=== PATIENT | male | born 1990 | race Caucasian/White ===

== ENCOUNTER 2017-09-01 18:58 | Emergency (ER) | payer OTHER ==
[~2017-09-01] VITALS: Ht 172.7 cm; Wt 75.3 kg
[2017-09-01 19:31] VITALS: BP 143/68
[2017-09-01] MEDS ORDERED: LIDOCAINE WITH 8.4% SOD BICARB 3 ML DISP.SYRIN. IJ ONE ×2 (20:54→21:00)
--- NOTE | 2017-09-01 21:23 | PHYS DOC ---
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 He has a proximally 6 cm laceration to the palmar side of the finger. Has good sensation noted. Patient is unsure when his last tetanus immunization occurred. Bleeding is currently controlled. Patient is right hand dominant. Review of Systems Review of Systems Constitutional: Denies fever or chills [] Eyes: Denies change in visual acuity, redness, or eye pain [] HENT: Denies nasal congestion or sore throat [] Respiratory: Denies cough or shortness of breath [] Cardiovascular: No additional information not addressed in HPI [] GI: Denies abdominal pain, nausea, vomiting, bloody stools or diarrhea [] : Denies dysuria or hematuria [] Musculoskeletal: Denies back pain or joint pain [] Integument: Denies rash or skin lesions. Laceration noted to the right middle finger Neurologic: Denies headache, focal weakness or sensory changes [] Endocrine: Denies polyuria or polydipsia [] All other systems were reviewed and found to be within normal limits, except as documented in this note. Current Medications Current Medications Current Medications Medications (Trade) Dose Ordered Sig/[facility] Start Time Stop Time Status Last Admin Dose Admin Lidocaine/Sodium Bicarbonate (Buffered Lidocaine 1%) 3 ml STK-MED ONCE 09/01/17 20:54 09/01/17 20:55 DC Allergies Allergies Allergies Coded Allergies Type Severity Reaction Last Updated Verified No Known Drug Allergies 09/01/17 No Physical Exam Physical Exam Constitutional: Well developed, well nourished, no acute distress, non-toxic appearance. [] HENT: Normocephalic, atraumatic, bilateral external ears normal, oropharynx moist, no oral exudates, nose normal. [] Eyes: PERRLA, EOMI, conjunctiva normal, no discharge. [] Neck: Normal range of motion, no tenderness, supple, no stridor. [] Cardiovascular:Heart rate regular rhythm Lungs & Thorax: no respiratory distress noted Abdomen: Bowel sounds normal, soft, no tenderness, no masses, no pulsatile masses. [] Skin: Warm, dry, no erythema, no rash. Laceration to right middle finger 6 cm in length. Extremities: No tenderness, no cyanosis, no clubbing, ROM intact, no edema. [] Neurologic: Alert and oriented X 3, normal motor function, normal sensory function, no focal deficits noted. [] Psychologic: Affect normal, judgement normal, mood normal. [] Current Patient Data Vital Signs Vital Signs Date Time Temp Pulse Resp B/P (MAP) Pulse Ox O2 Delivery O2 Flow Rate FiO2 09/01/17 19:31 98.3 78 18 99 Room Air 98.3 EKG EKG [] Radiology/Procedures Radiology/Procedures [] Course & Med Decision Making Course & Med Decision Making Pertinent Labs and Imaging studies reviewed. (See chart for details) Patient was instructed to keep the area clean and dry. Clean the site twice a with soap and water and apply antibiotic ointment to the area. Patient was provided with signs and symptoms of infection: Redness, warmth, tenderness or any yellow/greenish drainage and may come from the site. Patient was instructed to use Tylenol or ibuprofen for pain and discomfort. Ice packs on 20 minutes off 20 minutes several times a day. Elevation as much as possible. Patient was instructed to have the sutures out in the next 7-10 days. He was recommended to avoid submerging the finger and water recommended to avoid using prolonged period of gloves to prevent moisture in the suture area. Patient will be discharged home in stable condition. Signs and symptoms return back to emergency department has been provided. [] Dragon Disclaimer Dragon Disclaimer This electronic medical record was generated, in whole or in part, using a voice recognition dictation system. Departure Departure Impression: Primary Impression: Laceration Disposition: 01 HOME, SELF-CARE Condition: STABLE Referrals: NO PCP (PCP) Patient Instructions: Laceration Care, Adult, [id number] Additional Instructions: Activity as tolerated. Tylenol or ibuprofen for pain and discomfort. Ice packs on 20 minutes off 20 minutes several times a day. Elevation as much as possible. Keep the area clean and dry. Clean the site twice a day with soap and water and apply antibiotic ointment to the area. Watch for signs and symptoms of infection: Redness, warmth, tenderness or any yellow/greenish regime accompanist site if this occurs you will need to follow up immediately. Sutures out the next 7-10 days. Return back to emergency #symptoms become worse. Follow-up for suture removal with your work comp physician. Laceration/Wound Repair Laceration/Wound Repair : Wound Location: upper extremity Wound's Depth, Shape: superficial Wound Length (cm): 6 Wound Explored: clean Irrigated w/ Saline (ccs): 80 Betadine Prep?: Yes Anesthesia: 1% Lidocaine Volume Anesthetic (ccs): 5 Wound Debrided: minimal Wound Repaired With: sutures Suture Size/Type: 4:0, nylon Number of Sutures: 8 Progress One percent lidocaine buffered was injected into the finger for digital block. Site was cleaned with normal saline 80 mL. Site was cleaned with Betadine and sterile drapes applied. 4-0 nylon was used to suture the area with 8 interrupted sutures placed. Patient tolerated the procedure well. EYAD IBRAHIM APRN Sep 01, 2017 21:23
[2017-09-01] MEDS ORDERED: CEPH500T PO (21:33)
[2017-09-01] MEDS ORDERED: DIPHTH,PERTUSS(ACELL),TET TOX 0.5 ML DISP.SYRIN. VAX IM ONE (22:00)
== END 2017-09-01 21:45 | disposition home or self-care (01) ==
LOC: ER 18:58
DX: S61.212A Laceration without foreign body of right middle finger without damage to nail, initial encounter (principal); Y28.8XXA Contact with other sharp object, undetermined intent, initial encounter; Y93.89 Activity, other specified; Y99.8 Other external cause status; Y92.89 Other specified places as the place of occurrence of the external cause
CPT/HCPCS: 12002; 99283-25

== ENCOUNTER 2018-10-07 00:09 | Emergency (ER) | payer SELFPAY ==
[~2018-10-07] VITALS: Ht 177.8 cm; Wt 75.3 kg
[~2018-10-07 00:09] MED LIST: CEPH500T PO
[2018-10-07 00:24] VITALS: BP 147/74
[2018-10-07] MEDS ORDERED: AMOXICILLIN/K CLAV 875/125MG TABLET. PO ONE (00:30)
[2018-10-07] MEDS ORDERED: NEOMY/BACITR/POLYMYXIN OINT PACKET. TP ONE (00:30)
[2018-10-07] MEDS ORDERED: MUPI15CR TP (00:44)
[2018-10-07] MEDS ORDERED: AMOX1TAB61 PO (00:44)
[2018-10-07] MEDS ORDERED: IBUPROFEN 600 MG TABLET. PO ONE (00:45)
--- NOTE | 2018-10-07 00:45 | PHYS DOC ---
Past Medical History Past Medical History: No Pertinent History Past Surgical History: No Surgical History Alcohol Use: Occasionally Drug Use: None Adult General Chief Complaint Chief Complaint: ANIMAL BITE HPI HPI Patient is 28 yo right handed male who presents following dog bite at 2200 this evening. He reports he owns both dogs and they began fighting this evening, which he thinks was d/t one dog being in heat. He reports both dogs are up to date on rabies vaccinations. He was breaking up the dog fight when one dog accidentally bit him to left thumb. He describes the pain as heavy pressure on his thumb. He denies having any other injuries. He did not take any medication for pain or clean the wound following the bite. He denies any numbness in his left hand. He denies feeling any limitation in range of motion. Reports last tetanus booster was last year. Reports he is right hand dominant. Review of Systems Review of Systems Constitutional: Denies fever or chills [] HENT: Admits chronic ptosis L eye. GI: Denies abdominal pain, nausea, vomiting, or diarrhea [] Musculoskeletal: Denies back pain or joint pain. Admits left thumb throbbing pain. Integument: Denies rash or skin lesions. Admits bite wound to L thumb Neurologic: Denies headache, focal weakness or sensory changes [] Complete systems were reviewed and found to be within normal limits, except as documented in this note. Current Medications Current Medications Current Medications Medications (Trade) Dose Ordered Sig/[facility] Start Time Stop Time Status Last Admin Dose Admin Amoxicillin/ Clavulanate Potassium (Augmentin 875/ 125mg) 1 tab 1X ONCE 10/07/18 00:30 10/07/18 00:31 DC 10/07/18 00:44 1 TAB Ibuprofen (Motrin) 600 mg 1X ONCE 10/07/18 00:45 10/07/18 00:46 DC 10/07/18 00:44 600 MG Neomycin/ Polymyxin/ Bacitracin (Triple Antibiotic Ointment) 1 pkt 1X ONCE 10/07/18 00:30 10/07/18 00:31 DC 10/07/18 00:44 1 PKT Allergies Allergies Allergies Coded Allergies Type Severity Reaction Last Updated Verified No Known Drug Allergies 09/01/17 No Physical Exam Physical Exam Constitutional: Well developed, well nourished, no acute distress, non-toxic appearance. [] HENT: Normocephalic, atraumatic, ptosis L eye Eyes: PERRL, EOMI, conjunctiva normal, no discharge. [] Neck: Normal range of motion, Cardiovascular:Heart rate regular rhythm, no murmur [] Lungs & Thorax: Bilateral breath sounds clear to auscultation [] Extremities: L thumb tender to palpation with 3 lesions. One punctate lesion lateral aspect thumb at base of nail bed. One punctate lesion medial aspect thumb distal portion phalanx. One 2cm linear laceration medial side at base of thumb. AROM limited by pain. PROM WNL. Fingers warm and well perfused, sensation intact. Radial pulses 2/4 bl. Neurologic: Alert and oriented X 3, normal motor function, normal sensory function, no focal deficits noted. Psychologic: Affect normal, judgement normal, mood normal. [] Current Patient Data Vital Signs Vital Signs Date Time Temp Pulse Resp B/P (MAP) Pulse Ox O2 Delivery O2 Flow Rate FiO2 10/07/18 00:24 98.5 85 18 147/74 (98) 100 Room Air 98.5 EKG EKG [] Radiology/Procedures Radiology/Procedures [ED prelim read 3 view thumb left hand: No acute osseous abnormality. No foreign body noted.] Course & Med Decision Making Course & Med Decision Making Patient is 31 yo male who presents following dog bite at 2300 10/06/17 that occurred while breaking up a fight between two pets. Pt reports he owns both dogs and they are both vaccinated against rabies. He also reports he came to [facility] for wound care following work accident in 2017 or 2018 and is confident he received tetanus shot at that time. On physical exam his vitals are WNL, patient exhibits ptosis that father says is chronic, and he has 2 small puncture wounds and one laceration on L thumb. Patient received ibuprofen for pain. ED prelim read of L thumb revealed no acute osseous abnormalities or presence of foreign bodies. During wound care patient noted he was feeling "hot ", became pallid and sweaty. Patient reclined in chair with ice packs placed on forehead and neck. Cycled BP which showed SBP to be mid 80s. Patient allowed to rest and wound care was paused until patient's BP recovered to SBP 136. Resumed cleaning and dressing with patient in supine position. Instructed patient and his father to change the dressing twice daily and to keep the lesions clean using running water. Also avoided patient to avoid still water (no lakes, swimming, bath tubs) until healed. Finally, instructed patient that he would be discharged home with topical ointment and Augmentin. Patient should apply ointment with each dressing change and complete abx as instructed. Patient stable for discharge with outpatient follow-up with PCP. Discussed findings and plan with patient and family, who acknowledge understanding and agreement. Dragon Disclaimer Dragon Disclaimer This electronic medical record was generated, in whole or in part, using a voice recognition dictation system. Splinting Splinting : Location: Left thumb Pre-Made Type: metal (finger splint) Pre-Proc Neuro Vasc Exam: normal Post-Proc Neuro Vasc Exam: normal, unchanged from pre-exam Progress Wound cleaned using 500mL NS. Edges of linear laceration loosely approximated with 2 steri-strips. Applied triple abx ointment to all 3 lesions. Thumb wrapped in gauze. Aluminum fingersplint applied to ventral aspect thumb and secured in place with coban. Patient tolerated procedure well. Departure Departure Impression: Primary Impression: Dog bite of left thumb Disposition: HOME, SELF-CARE Condition: STABLE Referrals: NO PCP (PCP) Patient Instructions: Animal Bite, [id number] Additional Instructions: Do not soak your wound. You may shower. Clean wound daily with soap and water. Change dressing 2 times daily. Use prescribed antibiotic ointment with each dressing change. Wear finger splint for next week to improve healing of wound. Check for signs of infection (ie redness, warmth, fever) Use over the counter Tylenol and Ibuprofen for pain or discomfort. Scripts Amoxicillin/Potassium Clav (AUGMENTIN 875-125 TABLET) 1 Each Tablet 1 TAB PO BID for 7 Days, #14 TAB Prov: BIA OSORIO DO 10/07/18 Mupirocin Calcium (BACTROBAN CREAM) 15 Gm Cream..g. 1 CORNELL TP TID for 7 Days, #30 GM Prov: BIA OSORIO DO 10/07/18 Problem Qualifiers Primary Impression: Dog bite of left thumb Encounter type: initial encounter Qualified Codes: S61.052A - Open bite of left thumb without damage to nail, initial encounter; W54.0XXA - Bitten by dog, initial encounter BIA OSORIO DO Oct 07, 2018 00:45
--- NOTE | 2018-10-07 08:16 | RAD ---
3 view study of the fingers of left hand Clinical indications: Dog bite on thumb. FINDINGS: Soft tissue air is seen at the base of the thumb and webspace between the first and second digits. No radiopaque foreign body is evident. No acute fracture or dislocation or osteolytic process is seen. IMPRESSION: No acute fracture. Electronically signed by: Basilio Gonzalez MD (10/07/2018 8:12 AM) [facility]
== END 2018-10-07 01:40 | disposition home or self-care (01) ==
LOC: ER 00:09
DX: S61.012A Laceration without foreign body of left thumb without damage to nail, initial encounter (principal); S61.052A Open bite of left thumb without damage to nail, initial encounter; W54.0XXA Bitten by dog, initial encounter; Y93.89 Activity, other specified; Y92.89 Other specified places as the place of occurrence of the external cause; Y99.8 Other external cause status
CPT/HCPCS: 29125; 73140; 99284

== ENCOUNTER 2020-01-19 14:33 | Emergency (ER) | payer OTHER ==
[~2020-01-19] VITALS: Ht 172.7 cm; Wt 81.0 kg
[~2020-01-19 14:33] MED LIST changes: +AMOX1TAB61 PO; +MUPI15CR TP
[2020-01-19 14:46] VITALS: BP 141/80
--- NOTE | 2020-01-19 14:54 | PHYS DOC ---
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 He says he has had a dry cough but no shortness of breath. He denies any nausea or vomiting. He has not been around anybody else that is been sick. He does report body aches. [] Review of Systems: Review of Systems: Constitutional: Reports fever and chills. [] Eyes: Denies change in visual acuity. [] HENT: Denies nasal congestion or sore throat. [] Respiratory: Denies cough or shortness of breath. [] Cardiovascular: Denies chest pain or edema. [] GI: Denies abdominal pain, nausea, vomiting, bloody stools or diarrhea. [] : Denies dysuria. [] Musculoskeletal: Denies back pain or joint pain. [] Integument: Denies rash. [] Neurologic: Denies headache, focal weakness or sensory changes. [] Endocrine: Denies polyuria or polydipsia. [] Lymphatic: Denies swollen glands. [] Psychiatric: Denies depression or anxiety. [] Heart Score: Risk Factors: Risk Factors: DM, Current or recent (<one month) smoker, HTN, HLP, family history of CAD, obesity. Risk Scores: Score 0 - 3: 2.5% MACE over next 6 weeks - Discharge Home Score 4 - 6: 20.3% MACE over next 6 weeks - Admit for Clinical Observation Score 7 - 10: 72.7% MACE over next 6 weeks - Early Invasive Strategies Allergies: Allergies: Allergies Coded Allergies Type Severity Reaction Last Updated Verified No Known Drug Allergies 09/01/17 No Physical Exam: PE: Constitutional: Well developed, well nourished, no acute distress, non-toxic appearance. [] HENT: Normocephalic, atraumatic, bilateral external ears normal, oropharynx moist, no oral exudates, nose normal. [] Eyes: PERRLA, EOMI, conjunctiva normal, no discharge. [] Neck: Normal range of motion, no tenderness, supple, no stridor. [] Cardiovascular:Heart rate regular rhythm, no murmur [] Lungs & Thorax: Bilateral breath sounds clear to auscultation [] Abdomen: Bowel sounds normal, soft, no tenderness, no masses, no pulsatile masses. [] Skin: Warm, dry, no erythema, no rash. [] Back: No tenderness, no CVA tenderness. [] Extremities: No tenderness, no cyanosis, no clubbing, ROM intact, no edema. [] Neurologic: Alert and oriented X 3, normal motor function, normal sensory function, no focal deficits noted. [] Psychologic: Affect normal, judgement normal, mood normal. [] Current Patient Data: Vital Signs: Vital Signs Date Time Temp Pulse Resp B/P (MAP) Pulse Ox O2 Delivery O2 Flow Rate FiO2 01/19/20 14:46 100.5 117 20 141/80 (100) 98 Room Air 100.5 EKG: EKG: [] Radiology/Procedures: Radiology/Procedures: [] Course & Med Decision Making: Course & Med Decision Making Pertinent Labs and Imaging studies reviewed. (See chart for details) ED course: Evaluation reveals a 29-year-old male with symptoms of a viral upper respiratory type infection. I talked the patient through this and let him know that he needs to drink plenty of fluids take Tylenol and Motrin for the fever and return should he start developing some shortness of breath. [] Adela Disclaimer: Adela Disclaimer: This electronic medical record was generated, in whole or in part, using a voice recognition dictation system. Departure Departure Impression: Primary Impression: Viral upper respiratory infection Disposition: 01 HOME, SELF-CARE Condition: STABLE Referrals: NO PCP (PCP) Patient Instructions: Upper Respiratory Infection, Adult Additional Instructions: Thank you for visiting [facility]. We appreciate you trusting us with your care. If any additional problems come up don't hesitate to return to visit us. Please follow up with your primary care provider so they can plan additional care if needed and know about the problem that you had. If symptoms worsen come back to the Emergency Department. Any concerning symptoms that start such as chest pain, shortness of air, weakness or numbness on one side of the body, running high fevers or any other concerning symptoms return to the ER. You have a viral syndrome which may include symptoms like muscle aches, fevers, chills, runny nose, cough, sneezing, sore throat, vomiting, or diarrhea. One of the potential viruses that you may have is SARS-CoV-2, the virus that causes COVID-19, also known as the Coronavirus. You are just as likely to have a different viral infection such as the common cold, flu, etc. Most patients with the Coronavirus have mild symptoms and recover on their own. Resting, staying hydrated, and sleep from known cases can be helpful. As of todays visit, you are well enough to go home and treat your symptoms with oral fluids and over the counter medications. Coronavirus testing is not performed on most people with mild symptoms who are being discharged from the emergency department. If Coronavirus testing was performed the results will not be available for possibly up to 2-3 days. If your result is positive you will be contacted. Please follow the following precautions at home: 1) Stay home except to get medical care. 2) As advised by the CDC we recommend you stay in your home and minimize contact with other people. We do not want you to spread the infection. 3) Those who are older or have significant medical issues may have more severe symptoms from this infection. We recommend self-isolation,FOR AT LEAST 7 DAYS after your 1st day of symptoms. AFTER you feel better please wait AT LEAST ANOTHER WEEK before returning to regular activities and being around other people! 4) IF you become sicker and have difficulty breathing, chest pain, unable to eat/drink, severe vomiting, diarrhea, or weakness you may need to return to the Emergency Department. 5) You should restrict activities outside your home, except for getting medical care. DO NOT go to work, school, or public areas. Avoid using public transportation, ride sharing, or taxis. 6) Separate yourself from other people in your home. You should use a separate bathroom if possible. 7) Avoid sharing personal household items such as dishes, cups, eating utensils, towels, etc. 8) Clean all high touch surfaces every day (door knobs, counter tops, etc). Use a household cleaning spray or wipe per label instructions. 9) Clean your hands often. Wash your hands with soap and water for at least 20 seconds. 10) Cover your mouth and nose with a tissue when you cough or sneeze. 11) Throw used tissues in a trash can and immediately wash your hands. For additional resources please visit the CDC website or the [facility] ([phone]). DM CONNOR DO January 19, 2020 14:54
== END 2020-01-19 15:11 | disposition home or self-care (01) ==
LOC: ER 14:33
DX: J06.9 Acute upper respiratory infection, unspecified (principal); R50.9 Fever, unspecified; R06.02 Shortness of breath
CPT/HCPCS: 99281

== ENCOUNTER 2020-07-26 19:18 | Emergency (ER) | payer OTHER ==
[~2020-07-26] VITALS: Ht 180.3 cm; Wt 72.7 kg
--- NOTE | 2020-07-26 19:42 | PHYS DOC ---
Past Medical History Past Medical History: No Pertinent History Past Surgical History: No Surgical History Smoking Status: Never Smoker Alcohol Use: Occasionally Drug Use: None General Adult EDM: Chief Complaint: FOOT INJURY PAIN HPI: HPI: Patient is a 30 year old male who presents with patient states he was jumping over a railing at the [employer] last night and landing his left heel is hurting him. He states he is having to hop on it. Patient states it is a sharp pain when he puts pressure on the extremity. Denies numbness or tingling, weakness in the extremity, back pain, hip pain or pelvis pain. Patient rates his pain a 2 out of 10. States the pain does not radiate. Review of Systems: Review of Systems: Constitutional: Denies fever or chills. [] Eyes: Denies change in visual acuity. [] HENT: Denies nasal congestion or sore throat. [] Respiratory: Denies cough or shortness of breath. [] Cardiovascular: Denies chest pain or edema. [] GI: Denies abdominal pain, nausea, vomiting, bloody stools or diarrhea. [] : Denies dysuria. [] Musculoskeletal: Denies back pain or joint pain. +Left heel pain. [] Integument: Denies rash. [] Neurologic: Denies headache, focal weakness or sensory changes. [] Endocrine: Denies polyuria or polydipsia. [] Lymphatic: Denies swollen glands. [] Psychiatric: Denies depression or anxiety. [] Heart Score: Risk Factors: Risk Factors: DM, Current or recent (<one month) smoker, HTN, HLP, family history of CAD, obesity. Risk Scores: Score 0 - 3: 2.5% MACE over next 6 weeks - Discharge Home Score 4 - 6: 20.3% MACE over next 6 weeks - Admit for Clinical Observation Score 7 - 10: 72.7% MACE over next 6 weeks - Early Invasive Strategies Allergies: Allergies: Allergies Coded Allergies Type Severity Reaction Last Updated Verified No Known Drug Allergies 09/01/17 No Physical Exam: PE: Constitutional: Well developed, well nourished, no acute distress, non-toxic appearance. [] HENT: Normocephalic, atraumatic, bilateral external ears normal, oropharynx moist, no oral exudates, nose normal. [] Eyes: PERRLA, EOMI, conjunctiva normal, no discharge. [] Neck: Normal range of motion, no tenderness, supple, no stridor. [] Cardiovascular:Heart rate regular rhythm, no murmur [] Lungs & Thorax: Bilateral breath sounds clear to auscultation [] Abdomen: Bowel sounds normal, soft, no tenderness, no masses, no pulsatile masses. [] Skin: Warm, dry, no erythema, no rash. [] Back: No tenderness, no CVA tenderness. [] Extremities: No tenderness, no cyanosis, no clubbing, ROM intact, no edema. [] Neurologic: Alert and oriented X 3, normal motor function, normal sensory function, no focal deficits noted. [] Psychologic: Affect normal, judgement normal, mood normal. Normal physical exam [] EKG: EKG: [] Radiology/Procedures: Radiology/Procedures: [] Course & Med Decision Making: Course & Med Decision Making Pertinent Labs and Imaging studies reviewed. (See chart for details) See HPI. There is no tenderness, swelling, deformity, laxity of any joint in the foot or the ankle. He has full range of motion of all joints. There is no loss of sensation. No bruising. Skin pink warm and dry. Full strengths. Pedal pulses strong and present. Cap refill less than 2 seconds. Physical exam is completely normal. Xray read by Dr Aaron as no acute findings. Patient is placed in a walking boot and can follow up with orthopedics. [] Adela Disclaimer: Dragon Disclaimer: This electronic medical record was generated, in whole or in part, using a voice recognition dictation system. Departure Departure Impression: Primary Impression: Foot pain, left Disposition: 01 DC HOME SELF CARE/HOMELESS Condition: STABLE Referrals: NO PCP (PCP) RHONA ROBLERO MD Patient Instructions: Foot Contusion, Foot Sprain Additional Instructions: Follow-up with orthopedic I referred you to as soon as possible. Follow-up with primary care provider if needed. Use ice and elevation. Wear the walking boot to keep it stabilized and help with pain. Take ibuprofen for pain. Scripts Ibuprofen (IBUPROFEN) 600 Mg Tablet 600 MG PO PRN Q6HRS PRN for INFLAMMATION, #20 TAB Prov: EYAD ALEXANDRE APRN 07/26/20 EYAD ALEXANDRE APRN Jul 26, 2020 19:42
[2020-07-26] MEDS ORDERED: IBUP-1007 PO (20:52)
[2020-07-26 21:50] VITALS: BP 122/68
--- NOTE | 2020-07-26 22:04 | RAD ---
Exam: Left foot 3 views INDICATION: Pain after jumping ovary TECHNIQUE: Frontal, lateral and oblique views of the left foot Comparisons: None FINDINGS: Bone mineralization is normal. No acute or healed fractures. Soft tissues are unremarkable. Joint spaces are well-maintained. IMPRESSION: No acute osseous abnormality. Electronically signed by: Pedro Fine MD (07/26/2020 10:01 PM) [id number]
== END 2020-07-26 21:57 | disposition home or self-care (01) ==
LOC: ER 19:18
DX: M79.672 Pain in left foot (principal)
CPT/HCPCS: 73630; 99283